=== PATIENT | male | born 1955 | race Caucasian/White ===

== ENCOUNTER 2018-04-06 11:58 | Emergency (ER) | payer OTHER ==
[2018-04-06 12:38] LABS: ABSOLUTE BASOPHIL COUNT 0 /CUMM (0.0-0.2); ABSOLUTE EOSINOPHIL COUNT 0.2 /CUMM (0.0-0.7); ABSOLUTE GRANULOCYTE CT 3.9 /CUMM (1.4-6.5); ABSOLUTE LYMPH COUNT 1.5 /CUMM (1.2-3.4); ABSOLUTE MONOCYTE COUNT 0.6 /CUMM (0.10-0.60); BASOPHIL % 0.4 % (0.0-2.0); EOSINOPHIL % 2.5 % (0-5); GRANULOCYTE % 63.6 % (42.2-75.2); HEMATOCRIT 40.9 % (42-52); MEAN CORPUSCULAR HGB 28.2 PG (27.0-31.0); MEAN CORPUSCULAR HGB CONC 33.2 G/DL (33.0-37.0); MEAN CORPUSCULAR VOLUME 84.9 FL (80.0-94.0); MEAN PLATELET VOLUME 10.8 FL (7.4-10.4); RBC DISTRIBUTION WIDTH 14.8 % (11.5-14.5); RED BLOOD CELL CT 4.82 /CUMM (4.70-6.10)
[2018-04-06] MEDS ORDERED: IBUPROFEN800 M1 PO (12:52)
[2018-04-06] MEDS ORDERED: VITAMIN B-121000 MC3 PO (12:52)
[2018-04-06] MEDS ORDERED: CLONAZEPAM1 M2 PO (12:52)
--- NOTE | 2018-04-06 12:55 | ED GENERAL ADULT ---
History of Present Illness General Chief Complaint: General Adult Stated Complaint: HIGH BP Source: patient, old records Exam Limitations: no limitations Vital Signs & Intake/Output Vital Signs & Intake/Output Vital Signs Date Time Temp Pulse Resp B/P B/P Pulse O2 O2 Flow FiO2 Mean Ox Delivery Rate 04/06 1249 98.0 80 20 158/84 99 Room Air 04/06 1212 98.7 82 18 158/80 96 Room Air Allergies Coded Allergies: NO KNOWN ALLERGIES (04/07/18) Reconcile Medications Clonazepam 1 MG TABLET 1-2 TAB PO QPM SLEEP (Reported) Cyanocobalamin (Vitamin B-12) 1,000 MCG TABLET 3 TAB PO DAILY SUPPLEMENT ( Reported) Ibuprofen 800 MG TABLET 1 TAB PO AD PRN ARTHRITIS (Reported) Triage Note: 62 YO MALE TO TRIAGE FOR EVAL OF BLOOD PRESSURE. REPORTS HE HAS BEEN FEELING WEAK AND HAVING SOME BODY ACHES. Triage Nurses Notes Reviewed? yes HPI: 62 y/o male with PMHx of generalized anxiety disorder and sleep apnea presents to the ED with complaints of feeling "weird" since Sunday. Pt states he has been going through a lot of stress with his son and on Sunday there was a serious event that may have triggered the way he feels today at the ED. Pt states he has been having these recurrent episodes of feeling light headed, fatigue, and a bright red face ever since the stressor event on Sunday. Pt mentioned he takes clonazepam for his sleep apnea and he took one for the first time in the afternoon on and it helped with his symptoms. Pt otherwise is currently on no medications. Associated symptom with these episodes is intermittent abdominal pain. Pt denies N/V/D, fever, chills, or recent travel. Past History Travel History Traveled to [place] past 21 day No Medical History Any Pertinent Medical History? see below for history Neurological: NONE EENT: NONE Cardiovascular: NONE Respiratory: SLEEP APNEA Gastrointestinal: NONE Hepatic: NONE Renal: NONE Musculoskeletal: NONE Psychiatric: anxiety Endocrine: NONE Blood Disorders: NONE Cancer(s): NONE [employer]UCK [employer] RUBBISH [employer]OR/Reproductive: NONE Surgical History Surgical History: non-contributory Psychosocial History What is your primary language Yi Tobacco Use: Never used Family History Hx Contributory? No Review of Systems Review of Systems Constitutional: Reports: see HPI. EENTM: Reports: no symptoms. Respiratory: Reports: no symptoms. Cardiovascular: Reports: no symptoms. GI: Reports: no symptoms. Genitourinary: Reports: no symptoms. Musculoskeletal: Reports: no symptoms. Skin: Reports: no symptoms. Neurological/Psychological: Reports: no symptoms. Hematologic/Endocrine: Reports: no symptoms. Immunologic/Allergic: Reports: no symptoms. All Other Systems: Reviewed and Negative Physical Exam Physical Exam General Appearance: well developed/nourished, no apparent distress, anxious Head: atraumatic, normal appearance Eyes: Bilateral: normal appearance. Ears, Nose, Throat: normal pharynx, hearing grossly normal Neck: normal inspection Respiratory: normal breath sounds, no respiratory distress Cardiovascular: regular rate/rhythm Gastrointestinal: soft, non-tender Back: normal inspection, normal range of motion Extremities: normal inspection, normal range of motion Neurologic/Psych: awake, alert, oriented x 3, normal mood/affect Skin: intact, normal color, warm/dry Core Measures ACS in differential dx? No CVA/TIA Diagnosis: No Sepsis Present: No Sepsis Focused Exam Completed? No Progress Differential Diagnoses I considered the following diagnoses in my evaluation of the patient: HYPERTENSIVE URGENCY, ANXIETY, PANIC ATTACK, ACS. Plan of Care: Orders Procedure Date/time Status TROPONIN LEVEL 04/06 1159 Complete LYME TITRE 04/06 1159 Active COMPREHENSIVE METABOLIC PANEL 04/06 1159 Complete CBC WITHOUT DIFFERENTIAL 04/06 1159 Complete EKG 04/06 1159 Active Laboratory Tests 04/06/18 1219: Anion Gap 10, Estimated GFR > 60, BUN/Creatinine Ratio 11.4, Glucose 109 H, Calcium 9.0, Total Bilirubin 0.6, AST 19, ALT 27, Alkaline Phosphatase 56, Troponin I < 0.01, Total Protein 6.8, Albumin 4.1, Globulin 2.7, Albumin/ Globulin Ratio 1.5, CBC w Diff NO MAN DIFF REQ, RBC 4.82, MCV 84.9, MCH 28.2, MCHC 33.2, RDW 14.8 H, MPV 10.8 H, Gran % 63.6, Lymphocytes % 24.4, Monocytes % 9.1, Eosinophils % 2.5, Basophils % 0.4, Absolute Granulocytes 3.9, Absolute Lymphocytes 1.5, Absolute Monocytes 0.6, Absolute Eosinophils 0.2, Absolute Basophils 0, Lyme Disease Antibody Pending Low suspicion for ACS. BP controlled. Asymptomatic now. Suspect anxiety. Will discharge with outpatient follow up. Initial ED EKG: normal sinus rhythm, no ST T wave changes Departure Departure Disposition: HOME OR SELF CARE Condition: Stable Clinical Impression Primary Impression: Panic attack Referrals: Graciela FARRIS,Jose Mohamud MD,Janae Archibald (PCP/Family) Additional Instructions: Follow up with your PCP. Return to ER if new or worsening symptoms. Departure Forms: Customer Survey General Discharge Information Critical Care Note Critical Care Note Critical Care Time: non-applicable
[2018-04-06 13:06] LABS: PLATELET COUNT 132 /CUMM (130-400); WHITE BLOOD CELL COUNT 6.1 /CUMM (4.8-10.8)
[2018-04-06 14:39] VITALS: BP 162/88
== END 2018-04-06 14:54 ==
LOC: ERH 11:58
PROVIDERS: Physician Assistant
DX: F41.0 Panic disorder [episodic paroxysmal anxiety] (principal)
CPT/HCPCS: 86618; 93005; 93010